=== PATIENT | male | born 1980 | race Two or more races ===

== ENCOUNTER 2019-04-18 11:58 | Day surgery (SDC) | payer MEDICAID ==
[2019-04-17 13:26] LABS: Basophils # (auto) 0.1 uL; Basophils % (auto) 1.1 % (0.0-2.0); Eosinophils # (auto) 0.2 uL; Eosinophils % (auto) 2.3 % (0.0-7.0); Hematocrit 51.5 % (41.0-53.0); Hemoglobin 17.4 g/dL (13.5-17.5); Lymphocytes # (auto) 3.5 uL; Lymphocytes % (auto) 33.6 % (10.0-50.0); Mean Corpuscular Hemoglobin 29.4 pg (28.0-32.0); Mean Corpuscular Hgb Conc. 33.8 g/dL (32.0-36.0); Mean Corpuscular Volume 87.1 fL (80.0-100.0); Monocytes # (auto) 0.7 uL; Monocytes % (auto) 6.4 % (0.0-12.0); Neutrophils # (auto) 5.9 uL; Neutrophils % (auto) 56.6 % (37.0-80.0); Nucleated Red Blood Cells % 0.2 %; Platelet Count (auto) 256 10^3/uL (140-450); Red Blood Cells 5.92 10^6/uL (4.5-5.90); Red Cell Distribution Width 13.4 % (11.8-14.3); White Blood Cell 10.4 10^3/uL (4.4-10.8)
[2019-04-17 13:33] LABS: Urine Bacteria NONE SEEN /hpf (None Seen); Urine Blood Negative /uL (Negative); Urine Specific Gravity 1.019 (1.001-1.035); Urine WBC 1 /hpf (0 - 3)
[2019-04-17 13:41] LABS: INR 0.98 (0.9-1.15); Partial Thromboplastin Time 24.2 sec (23.64-32.05)
[2019-04-17 14:03] LABS: Potassium 4.1 mmol/L (3.5-5.1)
[2019-04-17 14:10] LABS: Albumin 4.1 g/dL (3.4-5.0); Bilirubin, Total 0.7 mg/dL (0.2-1.0); Calcium 9.4 mg/dL (8.5-10.1); Total Protein 7.9 g/dL (6.4-8.2)
[~2019-04-18] VITALS: Ht 170.2 cm; Wt 92.5 kg
[~2019-04-18 11:58] MED LIST: COLC0.6T56 PO; FEBU80TA PO; INS7030I SC; LOSA-39 PO
[2019-04-18] MEDS ORDERED: ceFAZolin 1GM/50ML 50 ML IV ONE (12:58)
[2019-04-18] MEDS ORDERED: LIDOCAINE 1% (LOCAL ANESTH.) PF 5ml SDV ONE (13:53)
[2019-04-18] MEDS ORDERED: NEOMYCIN-BACITRACIN-POLYM 15GM TOP OINT TOP ONE (14:03)
[2019-04-18] MEDS ORDERED: ROPIVACAINE 0.5% (5MG/ML) 20ML AMPULE IJ ONE (14:03)
[2019-04-18] MEDS ORDERED: HYDROmorphone HCL 2 MG/ML VL IV PRN ×2 (14:15)
[2019-04-18] MEDS ORDERED: ONDANSETRON HCL 4 MG/2 ML VIAL IV PRN (14:15)
[2019-04-18] MEDS ORDERED: ACCU-CHEK COMFORT CURVE STRIP VI ONE (14:15)
[2019-04-18] MEDS ORDERED: NALOXONE HCL 0.4 MG/ML VIAL IV PRN (14:15)
[2019-04-18] MEDS ORDERED: diphenhdrAMINE HCL 50 MG/1 ML VL ONE (14:18)
[2019-04-18] MEDS ORDERED: GLYCOPYRROLATE 0.2 MG/ML 1ML VIAL ONE (14:18)
[2019-04-18] MEDS ORDERED: MIDAZOLAM HCL 1MG/1ML-2 ML VIAL ONE ×2 (14:18→14:27)
[2019-04-18] MEDS ORDERED: METOCLOPRAMIDE HCL 5MG/ml INJ 2ml VIAL ONE (14:18)
[2019-04-18] MEDS ORDERED: LIDOCAINE 2% (LOCAL ANESTH.) PF 5ml SDV ONE (14:21)
[2019-04-18] MEDS ORDERED: PROPOFOL 10 MG/ML 20 ML IV ONE (14:21)
[2019-04-18] MEDS ORDERED: fentaNYL CITRATE 100 MCG/2 ML VL ONE (14:26)
[2019-04-18 15:30] VITALS: BP 125/88
== END 2019-04-18 15:42 | disposition home or self-care (01) ==
LOC: SUR 11:58
PROVIDERS: ATTEND Podiatrist Foot & Ankle Surgery
DX: M20.5X2 Other deformities of toe(s) (acquired), left foot (principal); I10 Essential (primary) hypertension; G47.33 Obstructive sleep apnea (adult) (pediatric); M10.9 Gout, unspecified; M19.90 Unspecified osteoarthritis, unspecified site; E11.9 Type 2 diabetes mellitus without complications; E66.01 Morbid (severe) obesity due to excess calories; Z98.890 Other specified postprocedural states; Z68.33 Body mass index [BMI] 33.0-33.9, adult
CPT/HCPCS: 28289; 36415; 80053; 81001; 82962; 85025; 85610; 85730; J0690; J1200; J2001; J2250; J2704; J2765; J2795; J3010

== ENCOUNTER 2019-05-23 11:15 | Day surgery (SDC) | payer MEDICAID ==
[2019-05-22 13:31] LABS: Eosinophils # (auto) 0.1 uL; Lymphocytes # (auto) 3.3 uL; Red Cell Distribution Width 13.6 % (11.8-14.3)
[2019-05-22 13:32] LABS: Basophils # (auto) 0.1 uL; Basophils % (auto) 0.6 % (0.0-2.0); Hematocrit 52.9 % (41.0-53.0); Lymphocytes % (auto) 32.9 % (10.0-50.0); Mean Corpuscular Hemoglobin 29.2 pg (28.0-32.0); Monocytes # (auto) 0.7 uL; Monocytes % (auto) 6.7 % (0.0-12.0); Neutrophils % (auto) 58.8 % (37.0-80.0); Nucleated Red Blood Cells % 0.1 %; Platelet Count (auto) 220 10^3/uL (140-450); Red Blood Cells 6.15 10^6/uL (4.5-5.90); White Blood Cell 10.1 10^3/uL (4.4-10.8)
[2019-05-22 13:33] LABS: Urine Bacteria NONE SEEN /hpf (None Seen); Urine Blood Negative /uL (Negative); Urine Hyaline Cast MOD /lpf (0 - 2); Urine Mucus FEW (None Seen); Urine Specific Gravity 1.027 (1.001-1.035); Urine WBC 12 /hpf (0 - 3)
[2019-05-22 13:43] LABS: INR 0.96 (0.9-1.15); Partial Thromboplastin Time 25.3 sec (23.64-32.05)
[2019-05-22 13:53] LABS: Albumin 4.4 g/dL (3.4-5.0); BUN/Creatinine Ratio 14.6; Calcium 10.1 mg/dL (8.5-10.1); Potassium 5.1 mmol/L (3.5-5.1)
[2019-05-22 13:55] LABS: Bilirubin, Total 0.8 mg/dL (0.2-1.0); Total Protein 8.4 g/dL (6.4-8.2)
[~2019-05-23] VITALS: Ht 170.2 cm; Wt 93.0 kg
[2019-05-23] MEDS ORDERED: ceFAZolin 1GM/50ML 50 ML IV ONE (13:40)
[2019-05-23] MEDS ORDERED: TETRACAINE 1% INJ 2 ML VIAL IJ ONE (14:05)
[2019-05-23] MEDS ORDERED: ROPIVACAINE 0.5% (5MG/ML) 20ML AMPULE IJ ONE (15:19)
[2019-05-23] MEDS ORDERED: GLYCOPYRROLATE 0.2 MG/ML 1ML VIAL IV ONE (15:30)
[2019-05-23] MEDS ORDERED: NEOSTIGMINE 1 MG/ML INJ (10mg/10ML VIAL) IV ONE (15:30)
[2019-05-23] MEDS ORDERED: fentaNYL CITRATE 100 MCG/2 ML VL ONE (15:42)
[2019-05-23] MEDS ORDERED: MIDAZOLAM HCL 1MG/1ML-2 ML VIAL ONE (15:42)
[2019-05-23] MEDS ORDERED: ROCURONIUM 10MG/ML 10ML VIAL IV ONE (15:42)
[2019-05-23] MEDS ORDERED: PROPOFOL 10 MG/ML 20 ML IV ONE (16:20)
[2019-05-23] MEDS ORDERED: fentaNYL CITRATE 100 MCG/2 ML VL IV ONE (16:22)
[2019-05-23] MEDS ORDERED: fentaNYL CITRATE 100 MCG/2 ML VL IV PRN (16:30)
[2019-05-23] MEDS ORDERED: hydrALAZINE HCL 20 MG/ML VL IV PRN (16:30)
[2019-05-23] MEDS ORDERED: ONDANSETRON HCL 4 MG/2 ML VIAL IV PRN (16:30)
[2019-05-23] MEDS ORDERED: ePHEDrine SULFATE 50 MG/ML AMP IV PRN (16:30)
[2019-05-23 17:09] VITALS: BP 112/75
[2019-05-25] MEDS ORDERED: GLIP5TAB12 PO (18:44)
[2019-05-25] MEDS ORDERED: METF-370 PO (18:44)
== END 2019-05-23 17:15 | disposition home or self-care (01) ==
LOC: SUR 11:15
PROVIDERS: ATTEND Podiatrist Foot & Ankle Surgery
DX: M76.61 Achilles tendinitis, right leg (principal); M77.31 Calcaneal spur, right foot; M20.21 Hallux rigidus, right foot; I10 Essential (primary) hypertension; E11.9 Type 2 diabetes mellitus without complications; M10.9 Gout, unspecified; E66.9 Obesity, unspecified; Z98.890 Other specified postprocedural states; Z79.84 Long term (current) use of oral hypoglycemic drugs; Z79.899 Other long term (current) drug therapy; Z68.32 Body mass index [BMI] 32.0-32.9, adult
CPT/HCPCS: 27650; 28119; 36415; 80053; 81001; 82962; 85025; 85610; 85730; 88304; 88311; C1713; J0690; J2250; J2704; J2795; J3010